=== PATIENT | female | born 2000 | race Hispanic/Latino ===

== ENCOUNTER 2023-10-28 06:23 | Day surgery (SDC) | payer OTHER ==
[2023-10-28 07:04] VITALS: BMI 28.3
[2023-10-28] MEDS ORDERED: Ondansetron HCl/PF 4 MG/2 ML Vial IVP PRN (07:28)
[2023-10-28] MEDS ORDERED: Lactated Ringer's 1,000 ML IV SCH (07:30)
[2023-10-28] MEDS ORDERED: Acetaminophen 500 MG TAB PO PRN (07:30)
[2023-10-28] MEDS ORDERED: Ondansetron PF 4 MG/2 ML Vial ONE (07:45)
[2023-10-28 07:53] LABS: Fetal Membranes Rupture No Membranes Rupture (No Rupture)
[2023-10-28] MEDS ORDERED: Ondansetron PF 4 MG/2 ML Vial IVP PRN (08:00)
== END 2023-10-28 09:15 | disposition home or self-care (01) ==
LOC: CSHLD/OP 06:23
PROVIDERS: ATTEND Family Medicine
DX: Z03.71 Encounter for suspected problem with amniotic cavity and membrane ruled out (principal); O23.593 Infection of other part of genital tract in pregnancy, third trimester; B96.89 Other specified bacterial agents as the cause of diseases classified elsewhere; Z3A.30 30 weeks gestation of pregnancy; Z79.899 Other long term (current) drug therapy
CPT/HCPCS: 84112; 87480; 87510; 87660; J2405